=== PATIENT | male | born 1940 | race Caucasian/White ===

== ENCOUNTER 2019-07-04 09:01 | Observation (INO) ==
--- NOTE | 2019-07-04 09:20 | Emergency Department Note ---
Disposition Clinical Impression: Lightheaded, Shortness of breath, Elevated troponin Chest pain Qualifiers: Chest pain type: unspecified Qualified Code(s): R07.9 - Chest pain, unspecified Chronic low back pain Qualifiers: Back pain laterality: unspecified Sciatica presence: without sciatica Qualified Code(s): M54.5 - Low back pain Anemia Qualifiers: Anemia type: unspecified type Qualified Code(s): D64.9 - Anemia, unspecified Disposition: Admitted As Inpatient Condition: Fair Time of Disposition: 12:29 General Adult HPI - General Stated complaint: back pain/SOB/Dizzy Time Seen by Provider: 07/04/19 09:08 Source: patient, family Mode of arrival: private vehicle Limitations: no limitations Nursing Notes Reviewed: Yes Vital Signs Reviewed: Yes - History of Present Illness HPI Narrative: Patient is a 78-year-old male with past medical history including atrial fibrillation, coronary artery disease status post MS with PCI to LAD in December, on , hypertension, hyperlipidemia, chronic back pain, presenting with a chief complaint of chest pain and lightheadedness. The patient states 3 weeks ago he had 3 episodes of syncope and he fell and hit his head. He followed up with his family physician this stated that his blood pressures were very low so he was taken off all of his antihypertensive medications per the patient. He states he has been doing well. He states for the last week, he complains of a frontal headache that is throbbing. He states it is intermittent and improves with acetaminophen. He states he gets headaches like these forward. He denies photophobia, phonophobia, unilateral weakness or numbness or tingling, no abnormal gait. He does also note that he has a history of chronic low back pain. He states he follows up with Dr. Sampson and is scheduled on to have an injection in his low back. He was taken off his pain medication this past week in preparation of his injection. He complains of worsening low back pain, right greater than left. He [facility] which he believes exacerbated his back pain and Tylenol is not helping. He denies any lower extremity weakness, urinary or bowel retention or incontinence, perianal numbness. Patient denies fevers or chills. He states this morning around 4 AM, he woke up and when he got out of bed he felt lightheaded. He thought he was going to pass out so he lay down on the ground. He also complains of substernal chest pain that is a burning sensation. He thought it was exacerbated reflux so he talked his acid reflux medication without any improvement in symptoms. He also complains of shortness of breath and felt nauseous. He had several episodes of dry heaving but no vomiting. Denies abdominal pain. He states he is still feeling intermittently lightheaded. Denies dizziness, hematemesis, hematochezia, melena, dysuria, hematuria. The patient has stress test in May that showed no ischemia or infarct. Stress LVEF was 70%. He also had an echocardiogram that showed LVEF of 60% with mild left ventricular diastolic dysfunction. Patient states he has chest pain at this time at time of arrival. - Related Data Home Medications Medication Instructions Recorded Confirmed Amiloride/Hydrochlorothiazide 0.5 tab PO DAILY 10/02/18 12/10/18 [Amiloride HCl-Hctz 5-50 mg Tab] Aspirin [Lo-Dose Aspirin EC] 81 mg PO DAILY 10/02/18 12/10/18 Buspirone HCl [Buspar] 15 mg PO BID 10/02/18 12/10/18 Omeprazole [PriLOSEC] 20 mg PO DAILY 10/02/18 12/10/18 diazePAM [Valium] 5 mg PO Q6H PRN 10/02/18 12/10/18 Venlafaxine HCl [Venlafaxine HCl 150 mg PO DAILY 10/30/18 12/10/18 ER] Lasix 40 mg PO DAILY 07/04/19 07/04/19 Previous Rx's Medication Instructions Recorded Atenolol [Tenormin] 25 mg PO QPM #30 tablet 12/12/18 Ticagrelor [Brilinta] 90 mg PO BID #60 tablet 12/12/18 Allergies Allergy/AdvReac Type Severity Reaction Status Date / Time nitroglycerin Allergy See Verified 12/10/18 18:18 Comments pregabalin [From Lyrica] AdvReac See Verified 12/10/18 18:18 Comments All systems ED: reviewed and negative except as stated. Review of Systems: As Per HPI Constitutional: Denies: fever, chills Eyes: Denies: vision change Cardiovascular: Reports: chest pain. Denies: palpitations Respiratory: Reports: dyspnea. Denies: cough Gastrointestinal: Reports: nausea. Denies: abdominal pain, vomiting, diarrhea Genitourinary: Denies: dysuria Musculoskeletal: Reports: back pain. Denies: neck pain Neurological: Reports: headache. Denies: weakness, numbness, abnormal gait Past Medical History - Past Medical History Attestation: Yes The following information was validated with the patient. Source: patient Medical history: Reports: atrial fibrillation, coronary artery disease, hyperlipidemia, hypertension, myocardial infarction Surgical history: Reports: knee replacement Psychiatric history: Reports: anxiety - Social History Smoking Status: Never smoker Smokeless Tobacco Status: No Alcohol use: Reports: none Drug use: Reports: none Physical Exam - General Limitations: no limitations General appearance: alert, in no apparent distress - Head Head exam: atraumatic, normocephalic - Eye Eye exam: Present: normal appearance, EOMI - ENT ENT exam: normal exam, mucous membranes moist - Neck Neck exam: Present: normal inspection, trachea midline - Chest Chest inspection: Present: normal inspection, symmetric chest wall rise - Respiratory Respiratory exam: Present: normal lung sounds bilaterally. Absent: respiratory distress, wheezes - Cardiovascular Cardiovascular exam: Present: regular rate, normal rhythm, other (bilateral radial pulses equal) - Abdominal Exam Abdominal exam: Present: soft, Non-Tender. Absent: distention, guarding - Extremities Exam Extremities exam: Present: full ROM, normal capillary refill. Absent: pedal edema, calf tenderness - Back Exam Back exam: Present: other (Tenderness to palpation of the lower lumbar spinal processes and right paraspinal muscles, no step-offs or deformities) - Neurological Exam Neurological exam: Present: alert, oriented X3. Absent: CN II-XII intact, motor sensory deficit - Expanded Neurological Exam Speech: Present: fluid speech Motor strength - LUE: 5/5 Motor strength - RUE: 5/5 Motor strength - LLE: 5/5 Motor strength - RLE: 5/5 Upper motor neuron exam: josé miguel neglect: Absent bilaterally, pronator drift: Absent bilaterally Sensory exam upper extremity: light touch: Normal Sensory exam lower extremity: light touch: Normal - Psychiatric Psychiatric exam: Present: normal affect, normal mood - Skin Skin exam: Present: warm, dry. Absent: diaphoresis, pallor Course Vital Signs Temperature 98.2 F 07/04/19 09:07 Pulse Rate 91 07/04/19 09:07 Respiratory Rate 18 07/04/19 09:07 Blood Pressure 109/60 07/04/19 09:07 O2 Sat by Pulse Oximetry 99 07/04/19 09:07 Temperature 98.2 F 07/04/19 09:07 Pulse Rate 79 07/04/19 12:15 Respiratory Rate 15 07/04/19 12:15 Blood Pressure 111/60 07/04/19 12:15 O2 Sat by Pulse Oximetry 99 07/04/19 12:15 Oxygen Delivery Oxygen Delivery Room Air Medical Decision Making - MDM Narrative Medical decision making narrative: Patient is presenting with multiple complaints. He has had a headache and acute on chronic low back pain in the last week. He has no lower extremity weakness, urinary or bowel incontinence, perianal anesthesia. He has a nonfocal neurologic examination. He is presenting this morning secondary to near syncope and chest pain. He recently had a stent placed in December to the LAD and is on Proventil. He had a recent stress test and echocardiogram in May. Approximately 3 weeks ago, he had 3 episodes of syncope that was due to hypoten rosalia and the patient was taken off his blood pressure medications. He states this morning, he almost passed out and has been having constant substernal chest pain. He thought it was similar to his acid reflux however his acid reflux medications and Tums did not help the pain. He is allergic to nitroglycerin. Full dose aspirin given here. He is borderline hypotensive and will give a liter of IV fluid bolus. We will obtain cardiac workup. Heart score 7. 10:35 Patient has a hemoglobin of 9.9. Denies hematochezia, melena, hematemesis. He did have a endoscopy on June 07 that showed multiple gastric polyps. Normal esophagus. he could have bleeding ulceration or polyps. Stool for occult blood was sent and there was no hemorrhoids, rectal tears, no gross red bloody stool. Stool was brown. BMP is still pending. 11:45 BMP still has not resulted. Called lab. They state the BMP was not on the machine and ran. They are putting it on the machine at this time. 12:15 BMP reviewed. Stool hemoccult negative. Hospitalist paged for admission. 12:[address] Borges who accepts admission - Medical Records Medical records reviewed: Yes I reviewed the patient's medical records. - Lab Data Lab results reviewed: Yes I reviewed the patient's lab results. Result diagrams: 07/04/19 09:23 07/04/19 09:23 Lab Results 07/04/19 07/04/19 07/04/19 Range/Units 09: 09:23 10:42 WBC 5.4 (4.3-11.1) K/mcL RBC 3.34 L (4.19-5.50) M/mcL Hgb 9.9 L (12.9-16.9) g/dL Hct 30.6 L (37.5-50.1) % MCV 91.6 (83.0-100.0) fL MCH 29.6 (28.0-33.3) pg MCHC 32.4 (31.6-35.5) g/dL RDW 13.7 (11.5-14.5) % Plt Count 185 (140-400) K/mcL MPV 9.0 L (9.4-12.4) fL Immature Gran % 0.4 (0-4) % Seg Neutrophils % 74.7 % Lymphocytes % 7.3 % Monocytes % 16.3 % Eosinophils % 0.4 % Basophils % 0.9 % Neutrophils # 4.0 (1.6-8.9) K/mcL Lymphocytes # 0.4 L (0.6-4.6) K/mcL Monocytes # 0.9 (0.0-1.3) K/mcL Eosinophils # 0.0 (0.0-0.6) K/mcL Basophils # 0.1 (0.0-0.2) K/mcL Sodium 138 (136-145) mEq/L Potassium 3.2 L (3.5-5.1) mEq/L Chloride 100 (98-107) mEq/L Carbon Dioxide 28 (23-29) mEq/L BUN 17 (8-23) mg/dL Creatinine 1.79 H (0.70-1.30) mg/dL Est GFR ( Amer) 45 L (> 60) Est GFR (Non-Af Amer) 37 L (> 60) BUN/Creatinine Ratio 9 (6-26) Glucose 154 H (70-105) mg/dL Calculated Osmolality 291 (280-300) Calcium 8.9 (8.6-10.3) mg/dL Troponin I 0.04 H* (< 0.04) ng/mL Stool Occult Bld Scrn Negative (Negative) - Radiology Data Radiology results reviewed: Yes I reviewed the patient's radiology results. Chest X-Ray 07/04/19 09:18 IMPRESSION: No acute cardiopulmonary disease D/ / 07/04/2019 10:11:55 Pieter Hoang MD / [facility] Interpreting Provider: Pieter Hoang MD - EKG Data EKG #1 EKG attestation: Yes I reviewed and interpreted this EKG. EKG results narrative: EKG obtained at 909 shows sinus rhythm with heart rate 89, NV interval 169 and QRS duration 108, QTC 475, normal axis, no ST elevation, no ST depression, compared to old EKG on 04/30/2019 which shows no new changes. Heart Score - Score History: Moderately Suspicious EKG: Non Specific repolarisation Disturbance Age: Greater than 65 Risk Factors: Equal/Greater than 3 risk factor or history of atherosclerotic disease Troponin: 1-3x normal limit HEART Score Total: 7
[2019-07-04] MEDS ORDERED: Aspirin 81 MG TAB.CHEW PO STA (09:31)
[2019-07-04 09:54] LABS: Basophils # 0.1 K/mcL (0.0-0.2); Basophils % 0.9 %; Eosinophils % 0.4 %; Hematocrit 30.6 % (37.5-50.1); Hemoglobin 9.9 g/dL (12.9-16.9); Immature Granulocytes % 0.4 % (0-4); Lymphocytes # 0.4 K/mcL (0.6-4.6); Lymphocytes % 7.3 %; Mean Corpuscular HGB Conc 32.4 g/dL (31.6-35.5); Mean Corpuscular Hemoglobin 29.6 pg (28.0-33.3); Mean Corpuscular Volume 91.6 fL (83.0-100.0); Monocytes # 0.9 K/mcL (0.0-1.3); Monocytes % 16.3 %; Platelet Count 185 K/mcL (140-400); Red Blood Count 3.34 M/mcL (4.19-5.50); Red Cell Distribution Width 13.7 % (11.5-14.5); Segmented Neutrophils % 74.7 %; White Blood Count 5.4 K/mcL (4.3-11.1)
[2019-07-04 10:04] LABS: Troponin I 0.04 ng/mL (< 0.04)
[2019-07-04] MEDS ORDERED: 0.9 % Sodium Chloride 1,000 ML IVC ONE (10:15)
[2019-07-04 12:05] LABS: Calcium 8.9 mg/dL (8.6-10.3); Potassium 3.2 mEq/L (3.5-5.1)
--- NOTE | 2019-07-04 12:14 | Emergency Department Note ---
Disposition Clinical Impression: Lightheaded, Shortness of breath, Elevated troponin Chest pain Qualifiers: Chest pain type: unspecified Qualified Code(s): R07.9 - Chest pain, unspecified Chronic low back pain Qualifiers: Back pain laterality: unspecified Sciatica presence: without sciatica Qualified Code(s): M54.5 - Low back pain Anemia Qualifiers: Anemia type: unspecified type Qualified Code(s): D64.9 - Anemia, unspecified Disposition: Admitted As Inpatient Condition: Fair Referrals: Shaquille Richard Jr, MD [Primary Care Provider] - Time of Disposition: 12:27 General Adult HPI - General Chief complaint: ED Dizziness Stated complaint: back pain/SOB/Dizzy Time Seen by Provider: 07/04/19 09:08 Source: patient, family Mode of arrival: private vehicle Limitations: no limitations - History of Present Illness Pain Scale: 10 - Related Data Home Medications Medication Instructions Recorded Confirmed Amiloride/Hydrochlorothiazide 0.5 tab PO DAILY 10/02/18 07/04/19 [Amiloride HCl-Hctz 5-50 mg Tab] Aspirin [Lo-Dose Aspirin EC] 81 mg PO DAILY 10/02/18 07/04/19 Buspirone HCl [Buspar] 15 mg PO BID 10/02/18 07/04/19 Omeprazole [PriLOSEC] 20 mg PO DAILY 10/02/18 07/04/19 diazePAM [Valium] 5 mg PO Q6H PRN 10/02/18 07/04/19 Venlafaxine HCl [Venlafaxine HCl 75 mg PO BID 10/30/18 07/04/19 ER] Lasix 40 mg PO DAILY 07/04/19 07/04/19 Previous Rx's Medication Instructions Recorded Atenolol [Tenormin] 25 mg PO QPM #30 tablet 12/12/18 Ticagrelor [Brilinta] 90 mg PO BID #60 tablet 12/12/18 Allergies Allergy/AdvReac Type Severity Reaction Status Date / Time nitroglycerin Allergy See Verified 12/10/18 18:18 Comments pregabalin [From Lyrica] AdvReac See Verified 12/10/18 18:18 Comments Constitutional: Denies: fever, chills Eyes: Denies: vision change Cardiovascular: Reports: chest pain. Denies: palpitations Respiratory: Reports: dyspnea. Denies: cough Gastrointestinal: Reports: nausea. Denies: abdominal pain, vomiting, diarrhea Genitourinary: Denies: dysuria Musculoskeletal: Reports: back pain. Denies: neck pain Neurological: Reports: headache. Denies: weakness, numbness, abnormal gait Past Medical History - Past Medical History Medical history: Reports: atrial fibrillation, coronary artery disease, hyperlipidemia, hypertension, myocardial infarction Surgical history: Reports: knee replacement Psychiatric history: Reports: anxiety - Social History Smoking Status: Never smoker Smokeless Tobacco Status: No Alcohol use: Reports: none Drug use: Reports: none Physical Exam - General Limitations: no limitations General appearance: alert, in no apparent distress Course Vital Signs Temperature 98.2 F 07/04/19 09:07 Pulse Rate 91 07/04/19 09:07 Respiratory Rate 18 07/04/19 09:07 Blood Pressure 109/60 07/04/19 09:07 O2 Sat by Pulse Oximetry 99 07/04/19 09:07 Temperature 98.2 F 07/04/19 09:07 Pulse Rate 79 07/04/19 12:15 Respiratory Rate 15 07/04/19 12:15 Blood Pressure 111/60 07/04/19 12:15 O2 Sat by Pulse Oximetry 99 07/04/19 12:15 Oxygen Delivery Oxygen Delivery Room Air Medical Decision Making - Lab Data Result diagrams: 07/04/19 09:23 07/04/19 09:23 Lab Results 07/04/19 07/04/19 07/04/19 Range/Units 09:23 09:23 10:42 WBC 5.4 (4.3-11.1) K/mcL RBC 3.34 L (4.19-5.50) M/mcL Hgb 9.9 L (12.9-16.9) g/dL Hct 30.6 L (37.5-50.1) % MCV 91.6 (83.0-100.0) fL MCH 29.6 (28.0-33.3) pg MCHC 32.4 (31.6-35.5) g/dL RDW 13.7 (11.5-14.5) % Plt Count 185 (140-400) K/mcL MPV 9.0 L (9.4-12.4) fL Immature Gran % 0.4 (0-4) % Seg Neutrophils % 74.7 % Lymphocytes % 7.3 % Monocytes % 16.3 % Eosinophils % 0.4 % Basophils % 0.9 % Neutrophils # 4.0 (1.6-8.9) K/mcL Lymphocytes # 0.4 L (0.6-4.6) K/mcL Monocytes # 0.9 (0.0-1.3) K/mcL Eosinophils # 0.0 (0.0-0.6) K/mcL Basophils # 0.1 (0.0-0.2) K/mcL Sodium 138 (136-145) mEq/L Potassium 3.2 L (3.5-5.1) mEq/L Chloride 100 (98-107) mEq/L Carbon Dioxide 28 (23-29) mEq/L BUN 17 (8-23) mg/dL Creatinine 1.79 H (0.70-1.30) mg/dL Est GFR ( Amer) 45 L (> 60) Est GFR (Non-Af Amer) 37 L (> 60) BUN/Creatinine Ratio 9 (6-26) Glucose 154 H (70-105) mg/dL Calculated Osmolality 291 (280-300) Calcium 8.9 (8.6-10.3) mg/dL Troponin I 0.04 H* (< 0.04) ng/mL Stool Occult Bld Scrn Negative (Negative) Attestation Statement - Attestation Attestation: I examined this patient and my medical decision-making was reviewed with the Resident Physician. I agree with the documented findings, disposition and treatment plan as described except to the extent set forth below. Patient presents with chest pain and difficulty breathing as well as with lightheadedness. Has recently taken off all his blood pressure medications because his pressures have been running low. His pressure continues to run low here. His hemoglobin is taken a bit of the DIP. Stool is Hemoccult negative, he has not had any complaints of symptoms that would suggest GI bleeding. I was present for the resident's EKG interpretation. He is pain-free at this time. Has chronic, stable renal dysfunction. Patient stable for admission to the hospital.
[2019-07-04] MEDS ORDERED: Naloxone 0.4 MG/ML INJ IVP PRN (14:19)
[2019-07-04] MEDS ORDERED: Morphine Sulfate 2 MG/ML SYRINGE IVP PRN (14:31)
[2019-07-04] MEDS: 0.9 % Sodium Chloride 1,000 ML IVC SCH ×2 (14:54→23:08)
[2019-07-04] MEDS: Potassium Chloride Elixir 20 MEQ/15 ML UDC PO SCH ×2 (14:54→17:51)
[2019-07-04] MEDS: Aspirin Enteric Coated 81 MG Tablet PO SCH (14:55)
[2019-07-04] MEDS ORDERED: Acetaminophen 325 MG TABLET PO PRN (15:19)
--- NOTE | 2019-07-04 15:29 | Internal Med History&Physical ---
Date of Encounter: 07/04/19 Time of Encounter: 15:00 Internal Medicine - H&P: HPI Chief complaint: Chest pain, shortness of breath and light headedness for a month Plans for Post Hospital Care: Home History of present illness: Mr. Samayoa is a 78 year old male with pmh of CAD s/p PCI in December 2018, chronic back pain, hypertension presenting with complaints of chest pain, lightheadedness and headaches for a month duration. Patient says the pain he is experiencing is similar to what he felt before his cardiac cath in december. When asked to describe his pain however , he says it's a soreness accompanied with a squeezing sensation and shortness of breath with activity such as walking. He however points to his chest wall and there's an area of reproducible tendereness at the inferior part of the right xiphoid process. In the past 1 day pain chest pain has worsened. He denies any fevers chills or coughs. He complains of intermittently passing out in the last 3 weeks as well and says this due to low blood pressure. He notes that his atenolol was stopped by Dr Sampson for a lumbar procedure he has scheduled for later this week. In the ER, troponins were 0.04, chest xray showed no acute cardiopulmonary disease, and he is being admitted for ACS workup Past Med Surg Social Fam HX - Past Medical History Medical history: atrial fibrillation, coronary artery disease, hyperlipidemia, hypertension, myocardial infarction Additional medical history: Chronic Pain, plantar fasciitis, pulmonary stenosis,. Rheumatic Fever Psychiatric history: anxiety, depression - Past Surgical History Surgical History: knee replacement Additional surgical history: Right and Left Knee Scope, back surgery, kidney surgery. LHC w/ Stents, right knee replacement - Social History Smoking Status: Never smoker Smokeless Tobacco Status: No Alcohol use: none Drug use: none - Family History Mother Living Status: Cause of : NM Hx Family Cardiac Disorders: Yes Father Living Status: Cause of : cancer Internal Medicine - H&P: Meds Amiloride/Hydrochlorothiazide [Amiloride HCl-Hctz 5-50 mg Tab] 0.5 tab PO DAILY 10/02/18 [History] Aspirin [Lo-Dose Aspirin EC] 81 mg PO DAILY 10/02/18 [History] Buspirone HCl [Buspar] 15 mg PO BID 10/02/18 [History] Omeprazole [PriLOSEC] 20 mg PO DAILY 10/02/18 [History] diazePAM [Valium] 5 mg PO Q6H PRN 10/02/18 [History] Venlafaxine HCl [Venlafaxine HCl ER] 75 mg PO BID 10/30/18 [History] Atenolol [Tenormin] 25 mg PO QPM #30 tablet 12/12/18 [Rx] Ticagrelor [Brilinta] 90 mg PO BID #60 tablet 12/12/18 [Rx] Lasix 40 mg PO DAILY 07/04/19 [History] Allergy/AdvReac Type Severity Reaction Status Date / Time nitroglycerin Allergy See Verified 12/10/18 18:18 Comments pregabalin [From Lyrica] AdvReac See Verified 12/10/18 18:18 Comments All Systems PM: A 10-system review of systems was performed and is negative for pertinent findings except as documented above in the HPI. - Constitutional Constitutional: no chills, no fever(s), no night sweats - EENT Eyes: no change in vision, no discharge, no pain, no photophobia Ears: no ear discharge, no ear pain, no tinnitus Nose, mouth and throat: no dysphagia, no nasal discharge, no neck pain, no sore throat - Cardiovascular Cardiovascular ROS IM: chest pain, no diaphoresis, no dyspnea, no lightheade dness, no palpitations, no syncope - Respiratory Respiratory: no cough, no dyspnea, no wheezing, no excessive phlegm production - Gastrointestinal Gastrointestinal: no abdominal pain, no diarrhea, no hematemesis, no hemato chezia, no melena, no nausea, no vomiting - Musculoskeletal Musculoskeletal ROS IM: no numbness, no tingling - Integumentary Integumentary IM: no rash, no unusual bruising - Neurological Neurological ROS: dizziness, headache(s), no confusion, no convulsions, no focal weakness, no numbness, no tingling, no tremor(s) - Hematologic/Lymphatic Hematologic/Lymphatic: no easy bruising - Constitutional Vitals: Temp Pulse Resp BP Pulse Ox 97.9 F 71 16 114/70 100 07/04/19 13:52 07/04/19 13:52 07/04/19 13:52 07/04/19 13:52 07/04/19 13:52 Exam: NAD - Head Head exam: Present: atraumatic, normocephalic - Eye Eye exam: Present: PERRL, conjuntiva pink, sclera anicteric Pupils: Present: PERRL - Neck Neck exam general surgery: Present: supple, trachea midline. Absent: lymphadenopathy - Respiratory Respiratory exam: Present: CTAB. Absent: accessory muscle use, rales, rhonchi, wheezes - Cardiovascular Cardiovascular exam: Present: RRR, +S1, +S2. Absent: diastolic murmur, gallop, rubs, systolic murmur - GI/Abdominal GI/Abdominal exam: Present: normal bowel sounds, soft, no peritoneal signs. A bsent: distended, tenderness - Extremities Exam Extremities exam: Present: warm, radial pulses palpable and symmetrical. Absent: calf tenderness, cyanotic, pedal edema - Neurological Exam Neurological exam: Present: CN II-XII intact, oriented X3, no focal deficits. Absent: pronater drift, facial droop, speech deficit - Skin Skin exam: Present: dry, intact Internal Med - H&P Results - Labs CBC & Chem 7: 07/04/19 09:23 07/04/19 09:23 Labs: Short CBC 07/04/19 Range/Units 09:23 WBC 5.4 (4.3-11.1) K/mcL Hgb 9.9 L (12.9-16.9) g/dL Hct 30.6 L (37.5-50.1) % Plt Count 185 (140-400) K/mcL Neutrophils # 4.0 (1.6-8.9) K/mcL BMP 07/04/19 09:23 Sodium 138 Potassium 3.2 L Chloride 100 Carbon Dioxide 28 BUN 17 Creatinine 1.79 H Glucose 154 H Calcium 8.9 Cardiac Enzymes 07/04/19 Range/Units 09:23 Troponin I 0.04 H* (< 0.04) ng/mL - Impressions ITS Impressions Chest X-Ray 07/04/19 09:18 IMPRESSION: No acute cardiopulmonary disease D/ / 07/04/2019 10:11:55 Pieter Hoang MD / [facility] Interpreting Provider: Pieter Hoang MD - Assessment and Plan (1) Chest pain Current Visit: Yes Status: Acute Assessment and plan: Pt comes in with chest pain of 1 moth duration. Had PCI in december and negative stress test in May Will continue aspirin and brillinta. No benefit to repeating stress test, cardiology consult for possible invasive workup. Obtain 2D echo Will cover for msk chest pain as patient has reproducible tenderness.. Tylenol and flexeril PRN Qualifiers: Chest pain type: unspecified Qualified Code(s): R07.9 - Chest pain, unspecified (2) Coronary artery disease Current Visit: Yes Status: Acute Assessment and plan: s/p PCI in December. Continue aspirin and brillinta Qualifiers: Coronary Disease-Associated Artery/Lesion type: unspecified vessel or lesion type [place] vs. transplanted heart: [place] heart Associated angina: without angina Qualified Code(s): I25.10 - Atherosclerotic heart disease of [place] coronary artery without angina pectoris (3) Chronic low back pain Current Visit: Yes Status: Acute Assessment and plan: Pain control as needed. Outpatient f/u with pain clinic Qualifiers: Back pain laterality: unspecified Sciatica presence: without sciatica Qualified Code(s): M54.5 - Low back pain; G89.29 - Other chronic pain (4) Hypotension Current Visit: Yes Status: Acute Assessment and plan: Unclear etiology. Reportedly stopped taking BP meds. Complains of intermittent hypotension and dizziness Obtain cortisol and TSH levels. IV fluid hydration. Obtain orthostatic vitals Qualifiers: Qualified Code(s): I95.9 - Hypotension, unspecified (5) HTN (hypertension) Current Visit: Yes Status: Acute Assessment and plan: Hold BP meds. Continue beta blockers Qualifiers: Hypertension type: essential hypertension Qualified Code(s): I10 - Essen tial (primary) hypertension (6) DVT prophylaxis Current Visit: Yes Status: Acute Assessment and plan: Heparin sc - Time Spent With Patient Total time spent is greater than 50% in coordination of care (as documented) at patient's floor/unit and/or counseling patient:
[2019-07-04] MEDS: *HR* Heparin 5,000 UNIT/ML VIAL SQ SCH (17:48)
[2019-07-04] MEDS: Venlafaxine XR (24 HR) 75 MG CAP.ER.24H PO SCH (20:08)
[2019-07-04] MEDS: *HR* Ticagrelor 90 MG TABLET PO SCH (20:08)
[2019-07-04] MEDS ORDERED: Acetaminophen IV 1,000 MG/100 ML INFUS..BTL IVPB ONE (22:49)
[2019-07-05] MEDS: diazePAM 5 MG TABLET PO PRN ×2 (01:11→08:21)
[2019-07-05 02:24] LABS: Basophils % 0.5 %; Eosinophils % 0.2 %; Hematocrit 29.9 % (37.5-50.1); Hemoglobin 9.4 g/dL (12.9-16.9); Immature Granulocytes % 0.5 % (0-4); Lymphocytes # 0.4 K/mcL (0.6-4.6); Lymphocytes % 9.2 %; Mean Corpuscular HGB Conc 31.4 g/dL (31.6-35.5); Mean Corpuscular Hemoglobin 28.7 pg (28.0-33.3); Mean Corpuscular Volume 91.2 fL (83.0-100.0); Mean Platelet Volume 9.3 fL (9.4-12.4); Monocytes # 0.6 K/mcL (0.0-1.3); Monocytes % 13.5 %; Neutrophils # 3.2 K/mcL (1.6-8.9); Platelet Count 165 K/mcL (140-400); Red Blood Count 3.28 M/mcL (4.19-5.50); Red Cell Distribution Width 14.1 % (11.5-14.5); Segmented Neutrophils % 76.1 %; White Blood Count 4.2 K/mcL (4.3-11.1)
[2019-07-05 02:42] LABS: Calcium 8.2 mg/dL (8.6-10.3); Magnesium 1.6 mg/dL (1.6-2.6); Potassium 3.9 mEq/L (3.5-5.1)
[2019-07-05] MEDS: *HR* Heparin 5,000 UNIT/ML VIAL SQ SCH (05:44)
[2019-07-05] MEDS: Venlafaxine XR (24 HR) 75 MG CAP.ER.24H PO SCH (08:20)
[2019-07-05] MEDS: Aspirin Enteric Coated 81 MG Tablet PO SCH (08:21)
[2019-07-05] MEDS: *HR* Ticagrelor 90 MG TABLET PO SCH (08:21)
[2019-07-05] MEDS ORDERED: AMILoride/HCTZ 5-50mg 1 EACH TABLET PO SCH (09:00)
--- NOTE | 2019-07-05 09:15 | Cardiology Consult Note ---
Date of Encounter: 07/05/19 Time of Encounter: 09:11 Assessment and Plan (1) Chest pain Current Visit: Yes Status: Acute Complaints of back and chest pain since November. Pt reports constant chest pain, no exacerbating factors. Reports mild symptom improvement with tums. Reports constant back pain as well. Initial troponin 0.04, then 0.03, 0.03. No acute ECG changes. Chest tenderness on palpation. Per pt, chest pain never improved post PCI in December. Nuclear stress test 05/28/19 perfusion imaging was negative for ischemia or infarct. Nuclear stress test 05/28/19: Perfusion imaging negative for ischemia or infarct. Gated EF >70%> [facility] 12/11/18: Double vessel coronary artery disease. Successful PCI of LAD with YUMIKO. The left ventricle is normal and has normal contractility EF 65%. Chest pain is atypical and has been ongoing since prior to LHC/PCI 12/2018. Would recommend work-up for noncardiac causes. Limited TTE ordered by primary team. Anticipate sign off if no significant change from previous TTE. Will discuss and review with Dr. Barney. Qualifiers: Chest pain type: unspecified Qualified Code(s): R07.9 - Chest pain, unspecified (2) Coronary artery disease Current Visit: Yes Status: Acute Hx PCI. [facility] 12/11/18: Double vessel coronary artery disease. Successful PCI of LAD with YUMIKO. The left ventricle is normal and has normal contractility EF 65%. Continue ASA, Brilinta, BB. Will start Statin. Qualifiers: Coronary Disease-Associated Artery/Lesion type: unspecified vessel or lesion type [place] vs. transplanted heart: [place] heart Associated angina: without angina Qualified Code(s): I25.10 - Atherosclerotic heart disease of [place] coronary artery without angina pectoris (3) PAF (paroxysmal atrial fibrillation) Current Visit: No Status: Acute Reported hx of PAF with DCCV in the past, per pt. Was not on halfway AC prior to admission. ECGs and tele show SR. ECG 12/2018 SVT, but no A-Fib noted in our system. [id number] (Age, HTN, CAD). High CVA risk. No A-Fib has been noted during stay. 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 Tripathi, as HGB currently 9.4 with previous baseline ~11 range. Continue ASA and Brilinta. Discussion w patient/family: The assessment and plan as outlined above was discussed with the patient and/or family members who expressed understanding and agreement. All questions were answered. Thank you for involving us in the care of your patient. Please call with any questions. I will discuss all the above with Dr. Barney and make changes as necessary. History of Present Illness Consult date: 07/05/19 Consult reason: chest pain Chief complaint: back pain, chest pain History of present illness: Mr. Samayoa is a 78 year old male with PMH of CAD and NSTEMI s/p PCI in December 2018, reported PAF, chronic back pain, hypertension presenting with complaints of back and chest pain since November. Pt reports constant chest pain, no exacerbating factors. Reports mild symptom improvement with tums. Reports constant back pain as well. Initial troponin 0.04, then 0.03, 0.03. Cardiology consulted for further recs. Per pt, chest pain never improved post PCI in December. Nuclear stress test 05/28/19 perfusion imaging was negative for ischemia or infarct. Prior CV testing: Nuclear stress test 05/28/19: Perfusion imaging negative for ischemia or infarct. Gated EF >70%> TTE 05/28/19: LVEF 60%. Mild left ventricular diastolic dysfunction. Normal right ventricular structure and function. Mild tricuspid regurgitation. No pulmonary hypertension. [facility] 12/11/18: Double vessel coronary artery disease. Successful PCI of LAD with YUMIKO. The left ventricle is normal and has normal contractility EF 65% Past Med Surg Social Fam HX - Past Medical History Medical history: atrial fibrillation, coronary artery disease, hyperlipidemia, hypertension, myocardial infarction Additional medical history: Chronic Pain, plantar fasciitis, pulmonary stenosis,. Rheumatic Fever Psychiatric history: anxiety, depression - Past Surgical History Surgical History: knee replacement Additional surgical history: Right and Left Knee Scope, back surgery, kidney surgery. [facility] w/ Stents, right knee replacement - Social History Smoking Status: Never smoker Smokeless Tobacco Status: No Alcohol use: none Drug use: none - Family History Mother Living Status: Cause of : [place] Hx Family Cardiac Disorders: Yes Father Living Status: Cause of : cancer Medications and Allergies Amiloride/Hydrochlorothiazide [Amiloride HCl-Hctz 5-50 mg Tab] 0.5 tab PO DAILY 10/02/18 [History] Aspirin [Lo-Dose Aspirin EC] 81 mg PO DAILY 10/02/18 [History] Buspirone HCl [Buspar] 15 mg PO BID 10/02/18 [History] Omeprazole [PriLOSEC] 20 mg PO DAILY 10/02/18 [History] diazePAM [Valium] 5 mg PO Q6H PRN 10/02/18 [History] Venlafaxine HCl [Venlafaxine HCl ER] 75 mg PO BID 10/30/18 [History] Atenolol [Tenormin] 25 mg PO QPM #30 tablet 12/12/18 [Rx] Ticagrelor [Brilinta] 90 mg PO BID #60 tablet 12/12/18 [Rx] Lasix 40 mg PO DAILY 07/04/19 [History] traZODone [TraZODone] 25 mg PO HS 07/04/19 [History] Allergy/AdvReac Type Severity Reaction Status Date / Time nitroglycerin Allergy See Verified 12/10/18 18:18 Comments pregabalin [From Lyrica] AdvReac See Verified 12/10/18 18:18 Comments All Systems Review: The remainder of the systems were reviewed and are negative - Cardiovascular Cardiovascular: as per HPI, chest pain at rest, chest pain with exertion Physical Examination Vital Signs, Last 4 Hours Temp Pulse Resp BP Pulse Ox 07/05/19 08:01 98.3 F 65 16 108/56 94 Vital Signs Temp Pulse Resp BP BP BP BP 07/05/19 08:01 98.3 F 65 16 108/56 07/05/19 03:06 98.4 F 73 16 103/62 07/04/19 22:21 98.8 F 75 16 112/64 07/04/19 19:21 98.7 F 80 16 101/56 07/04/19 15:35 98.0 F 86 16 112/68 07/04/19 15:33 120/73 118/65 112/68 07/04/19 13:52 97.9 F 71 16 114/70 07/04/19 12:15 79 15 111/60 07/04/19 10:59 77 18 105/61 Pulse Ox 07/05/19 08:01 94 07/05/19 03:06 94 07/04/19 22:21 98 07/04/19 19:21 95 07/04/19 15:35 98 07/04/19 15:33 07/04/19 13:52 100 07/04/19 12:15 99 07/04/19 10:59 100 Intake and Output 07/04/19 07/05/19 07/05/19 23:59 07:59 15:59 Intake Total 1120 / 2120 Output Total 200 / 200 100 / 100 Balance 920 / 1920 -100 / -100 Intake: IV Fluids 1000 / 2000 0.9 % Sodium Chloride 1,000 ML 1000 / 1000 @ 100 mls/hr IVC .Q10H [facility] Rx#: [id number] Oral 120 / 120 Output: Urine 200 / 200 100 / 100 Other: Meal Dinner Percent of Meal Consumed 20% Weight 92.3 kg Patient Weight 07/05/19 23:59 Weight 92.3 kg General: Conversant, No Apparent Distress HEENT: Atraumatic, Normocephaly, Mucus Membranes Moist Neck: No JVD, Normal carotid pulses Cardiac: Reg Rate and Rhythm, Normal S1 and S2, No Murmur Lungs: Normal Breath Sounds, No Wheeze, Rales, Rhonchi Neuro: Alert and responsive, No focal deficits noted Abdomen: Soft, Non-Tender Skin: No rashes noted on visualized skin Musculoskeletal: No Chest Wall Tenderness Extremities: No Clubbing, No Cyanosis, No Edema, Normal Pulses Results 07/05/19 00:35 07/05/19 00:35 Lab Results 07/04/19 07/04/19 07/04/19 09:23 09:23 16:10 WBC 5.4 Hgb 9.9 L Hct 30.6 L Plt Count 185 Sodium 138 Potassium 3.2 L Chloride 100 Carbon Dioxide 28 BUN 17 Creatinine 1.79 H Glucose 154 H Calcium 8.9 Magnesium Troponin I 0.04 H* 0.03 TSH 07/04/19 07/05/19 07/05/19 16:10 00:35 00:35 WBC 4.2 L Hgb 9.4 L Hct 29.9 L Plt Count 165 Sodium 141 Potassium 3.9 Chloride 106 Carbon Dioxide 26 BUN 18 Creatinine 1.75 H Glucose 97 Calcium 8.2 L Magnesium 1.6 Troponin I TSH 1.967 07/05/19 00:35 WBC Hgb Hct Plt Count Sodium Potassium Chloride Carbon Dioxide BUN Creatinine Glucose Calcium Magnesium Troponin I 0.03 TSH Short CBC 07/05/19 07/04/19 Range/Units 00:35 09:23 WBC 4.2 L 5.4 (4.3-11.1) K/mcL Hgb 9.4 L 9.9 L (12.9-16.9) g/dL Hct 29.9 L 30.6 L (37.5-50.1) % Plt Count 165 185 (140-400) K/mcL Neutrophils # 3.2 4.0 (1.6-8.9) K/mcL BMP 07/05/19 07/04/19 Range/Units 00:35 09:23 Sodium 141 138 (136-145) mEq/L Potassium 3.9 3.2 L (3.5-5.1) mEq/L Chloride 106 100 (98-107) mEq/L Carbon Dioxide 26 28 (23-29) mEq/L BUN 18 17 (8-23) mg/dL Creatinine 1.75 H 1.79 H (0.70-1.30) mg/dL Glucose 97 154 H (70-105) mg/dL Calcium 8.2 L 8.9 (8.6-10.3) mg/dL Cardiac Enzymes 07/05/19 07/04/19 07/04/19 Range/Units 00:35 16:10 09:23 Troponin I 0.03 0.03 0.04 H* (< 0.04) ng/mL Impressions Chest X-Ray 07/04/19 09:18 IMPRESSION: No acute cardiopulmonary disease D/ / 07/04/2019 10:11:55 Pieter Hoang MD / [facility] Interpreting Provider: Pieter Hoang MD Active Medications Acetaminophen (Tylenol) 650 mg PO Q6HR PRN PRN Reason: Analgesia Stop: 01/03/20 15:20 Last Admin: 07/05/19 01:11 Dose: 650 mg Documented by: Aspirin (Aspirin Ec) 81 mg PO DAILY [facility] Stop: 01/03/20 14:31 Last Admin: 07/05/19 08:21 Dose: 81 mg Documented by: Atenolol (Tenormin) 25 mg PO QPM [facility] Stop: 03/02/20 18:01 Last Admin: 07/04/19 17:49 Dose: 25 mg Documented by: Buspirone HCl (Buspar) 15 mg PO BID [facility] Stop: 01/03/20 21:01 Last Admin: 07/05/19 08:19 Dose: 15 mg Documented by: Cyclobenzaprine HCl (Flexeril) 5 mg PO Q8H PRN PRN Reason: Chest Pain Stop: 01/03/20 15:31 Last Admin: 07/05/19 08:20 Dose: 5 mg Documented by: Diazepam (Valium) 5 mg PO Q6H PRN PRN Reason: Anxiety Stop: 01/03/20 14:22 Last Admin: 07/05/19 08:21 Dose: 5 mg Documented by: Heparin Sodium (Porcine) (Heparin) 5,000 unit SQ Q12HCO [facility]; Protocol Stop: 01/03/20 18:01 Last Admin: 07/05/19 05:44 Dose: 5,000 unit Documented by: Lidocaine HCl (Lidoderm 5% Patch) 2 each TP Q24H [facility] Stop: 01/03/20 23:01 Last Admin: 07/04/19 23:07 Dose: 1 each Documented by: Morphine Sulfate (Morphine) 0.5 mg IVP Q6HR PRN; Protocol PRN Reason: Breakthrough Pain Stop: 01/03/20 14:32 Last Admin: 07/04/19 20:08 Dose: 0.5 mg Documented by: Naloxone HCl (Narcan) 0.4 mg IVP Q2MPRN PRN PRN Reason: SEE COMMENTS Stop: 01/03/20 14:20 Omeprazole (Prilosec) 20 mg PO DAILY@0730 [facility]; Protocol Stop: 01/04/20 07:31 Last Admin: 07/05/19 08:20 Dose: 20 mg Documented by: Ticagrelor (Brilinta) 90 mg PO BID [facility] Stop: 01/03/20 21:01 Last Admin: 07/05/19 08:21 Dose: 90 mg Documented by: Venlafaxine HCl (Effexor Xr) 75 mg PO BID [facility]; Protocol Stop: 01/03/20 21:01 Last Admin: 07/05/19 08:20 Dose: 75 mg Documented by: - Imaging and Cardiology Stress Test: report reviewed Echo: report reviewed Cardiac cath: report reviewed - EKG Interpretation EKG results cardiology: personally reviewed (SR), other (12 hr tele AVG HR 67, SR) Consult Discharge Plan - Plan Referrals: Shaquille Richard Jr, MD [Primary Care Provider] -
[2019-07-05 12:21] VITALS: BP 133/71
--- NOTE | 2019-07-05 12:30 | Discharge Summary ---
Date of Encounter: 07/05/19 Time of Encounter: 13:09 - Discharge Diagnosis (1) Chest pain Priority: Primary Status: Acute Assessment and Plan: 78 year old male with pmh of CAD s/p PCI in December 2018, chronic back pain, hypertension presenting with complaints of chest pain, lightheadedness and headaches for a month duration. Patient says the pain he is experiencing is similar to what he felt before his cardiac cath in december. When asked to describe his pain however , he says it's a soreness accompanied with a squeezing sensation and shortness of breath with activity such as walking. He however points to his chest wall and there's an area of reproducible tendereness at the inferior part of the right xiphoid process. In the past 1 day pain chest pain has worsened. He denies any fevers chills or coughs. He complains of intermittently passing out in the last 3 weeks as well and says this due to low blood pressure. He notes that his atenolol was stopped by Dr Sampson for a lumbar procedure he has scheduled for later this week. He was assessed with chest pain musculoskletal vs ACS. Pain was reproducible on chest wall palpation and improved with flexeril. He was seen by cardiology who recommended an echo and if no acute changes on echo, he could be discharged with no further workup. Due to holiday, echo will not be performed till much later in the day (if at all it's done today) and patient elected to go home . He has been given a referral to complete his echo within the next 2 days. He was discharged on muscle relaxants. Discharged in a stable condition Qualifiers: Chest pain type: unspecified Qualified Code(s): R07.9 - Chest pain, unspecified (2) Coronary artery disease Priority: Primary Status: Acute Qualifiers: Coronary Disease-Associated Artery/Lesion type: unspecified vessel or lesion type [place] vs. transplanted heart: [place] heart Associated angina: without angina Qualified Code(s): I25.10 - Atherosclerotic heart disease of [place] coronary artery without angina pectoris (3) Chronic low back pain Priority: Primary Status: Acute Qualifiers: Back pain laterality: unspecified Sciatica presence: without sciatica Qualified Code(s): M54.5 - Low back pain; G89.29 - Other chronic pain (4) Hypotension Priority: Primary Status: Acute Qualifiers: Qualified Code(s): I95.9 - Hypotension, unspecified (5) HTN (hypertension) Priority: Primary Status: Acute Qualifiers: Hypertension type: essential hypertension Qualified Code(s): I10 - Essential (primary) hypertension (6) DVT prophylaxis Priority: Primary Status: Acute Hospital course: Mr. Samayoa is a 78 year old male - Time Spent with Patient Total time spent providing and/or coordinating discharge services: - Discharge Medications Prescriptions: New Cyclobenzaprine [Flexeril] 5 mg PO Q8H PRN #30 tablet PRN Reason: Chest Pain Continued Aspirin [Lo-Dose Aspirin EC] 81 mg PO DAILY Amiloride/Hydrochlorothiazide [Amiloride HCl-Hctz 5-50 mg Tab] 0.5 tab PO DAILY Omeprazole [PriLOSEC] 20 mg PO DAILY Buspirone HCl [Buspar] 15 mg PO BID diazePAM [Valium] 5 mg PO Q6H PRN PRN Reason: Anxiety Venlafaxine HCl [Venlafaxine HCl ER] 75 mg PO BID Atenolol [Tenormin] 25 mg PO QPM #30 tablet Ticagrelor [Brilinta] 90 mg PO BID #60 tablet Lasix 40 mg PO DAILY traZODone [TraZODone] 25 mg PO HS Home Medications: Amiloride/Hydrochlorothiazide [Amiloride HCl-Hctz 5-50 mg Tab] 0.5 tab PO DAILY 10/02/18 [History] Aspirin [Lo-Dose Aspirin EC] 81 mg PO DAILY 10/02/18 [History] Buspirone HCl [Buspar] 15 mg PO BID 10/02/18 [History] Omeprazole [PriLOSEC] 20 mg PO DAILY 10/02/18 [History] diazePAM [Valium] 5 mg PO Q6H PRN 10/02/18 [History] Venlafaxine HCl [Venlafaxine HCl ER] 75 mg PO BID 10/30/18 [History] Atenolol [Tenormin] 25 mg PO QPM #30 tablet 12/12/18 [Rx] Ticagrelor [Brilinta] 90 mg PO BID #60 tablet 12/12/18 [Rx] Lasix 40 mg PO DAILY 07/04/19 [History] traZODone [TraZODone] 25 mg PO HS 07/04/19 [History] Cyclobenzaprine [Flexeril] 5 mg PO Q8H PRN #30 tablet 07/05/19 [Rx] Allergies/Adverse Reactions: Allergy/AdvReac Type Severity Reaction Status Date / Time nitroglycerin Allergy See Verified 12/10/18 18:18 Comments pregabalin [From Lyrica] AdvReac See Verified 12/10/18 18:18 Comments Date of admission: 07/04/19 12:34 Primary care physician: Shaquille Richard Jr, MD Consults: 07/04/19 14:20 Consult to Cardiology [CONS] Routine Comment: Consulting Provider: [facility] [place] Reason for Consult: recurrent chest pain, recent negative stress test and recent PCI in December Call Completed: No - Constitutional Vitals: Temp Pulse Resp BP Pulse Ox 98.1 F 73 16 133/71 97 07/05/19 12:20 07/05/19 12:20 07/05/19 12:20 07/05/19 12:20 07/05/19 12:20 Exam: General appearance: Present: A&O X 3, no acute distress Head exam: Present: normocephalic Respiratory exam: Present: CTAB. Absent: accessory muscle use, rales, rhonchi, wheezes Cardiovascular exam: Present: RRR, +S1, +S2. Absent: diastolic murmur, gallop, rubs, systolic murmur GI/Abdominal exam: Soft, NT, ND, +BS Extremities exam: Absent: pedal edema Neurological exam: Present: alert, oriented X3, no focal deficits. Absent: altered - Patient Status Disposition: Home, Self-Care Condition: Good - Ambulatory Orders Ambulatory Orders: EV limited echocardiogram Time Frame: 2 Days, Facility: [facility], Location: [facility] - Discharge Instructions Instructions: Cyclobenzaprine (By mouth), Transthoracic Echocardiogram (DC) Follow Up With: Shaquille Richard Jr, MD [Primary Care Provider] - (Please call Friday to schedule hospital follow up appointment for 7-10 days from date of discharge. ) Forms: ED Satisfaction Letter
--- NOTE | 2019-07-08 11:15 | Electrocardiograph Report ---
[employer] Test Date: 2019-07-04 Pat Name: Jay Rhodes Department: EXAM5 Room: 3B43 Gender: M [employer]ical [employer]: : 1940 Requested By: Sona Bai Order Number: [id number] Reading MD: Shaquille Richard Measurements Intervals [place] Rate: 89 P: 57 SD: 169 QRS: 109 QRSD: 108 T: 33 QT: 390 QTc: 475 Interpretive Statements Sinus rhythm Probable right ventricular hypertrophy Electronically Signed On 07-08-2019 11:14:05 EDT by Shaquille Richard
== END 2019-07-05 13:11 | disposition home or self-care (01) ==
LOC: 3BNU 09:01 → EMEROOARM 09:01 → 3BNU 13:30
PROVIDERS: ADMIT Internal Medicine; ATTEND Internal Medicine

== ENCOUNTER 2021-05-02 09:22 | Observation (INO) ==
[2021-05-02] MEDS ORDERED: Aspirin 81 MG TAB.CHEW PO ONE (09:36)
[2021-05-02] MEDS ORDERED: Ondansetron 4 MG/2 ML VIAL IVP ONE (09:36)
[2021-05-02] MEDS ORDERED: *HR* FentaNYL (PF) 100 MCG/2 ML VIAL IVP ONE (09:51)
[2021-05-02 10:11] LABS: Basophils # 0.1 K/mcL (0.0-0.2); Basophils % 0.6 %; Eosinophils # 0.1 K/mcL (0.0-0.6); Eosinophils % 0.8 %; Hemoglobin 11.9 g/dL (12.9-16.9); Immature Granulocytes % 0.4 % (0-4); Lymphocytes % 9.7 %; Mean Corpuscular HGB Conc 32.2 g/dL (31.6-35.5); Mean Corpuscular Hemoglobin 29.7 pg (28.0-33.3); Mean Corpuscular Volume 92.3 fL (83.0-100.0); Mean Platelet Volume 8.9 fL (9.4-12.4); Monocytes # 0.9 K/mcL (0.0-1.3); Monocytes % 8.5 %; Neutrophils # 8.5 K/mcL (1.6-8.9); Platelet Count 216 K/mcL (140-400); Red Blood Count 4.01 M/mcL (4.19-5.50); Red Cell Distribution Width 12.9 % (11.5-14.5); White Blood Count 10.7 K/mcL (4.3-11.1)
[2021-05-02 10:19] LABS: INR 1.7
[2021-05-02 10:22] LABS: Activated Partial Thrombo Time 32.4 Seconds (26.0-36.0)
[2021-05-02 10:32] LABS: BUN/Creatinine Ratio 11 (6-26); Blood Urea Nitrogen 16 mg/dL (8-23); Calcium 9.2 mg/dL (8.6-10.3); Carbon Dioxide 27 mEq/L (23-29); Chloride 100 mEq/L (98-107); Glucose 134 mg/dL (70-105); Osmolality,Calculated 289 (280-300); Sodium 138 mEq/L (136-145); eGFR For African Americans 59 (> 60); eGFR For Non-African Americans 49 (> 60)
[2021-05-02 10:34] LABS: Troponin I < 0.03 ng/mL (< 0.04)
[2021-05-02] MEDS ORDERED: Ondansetron ODT 4 MG TAB.RAPDIS SL PRN (11:33)
[2021-05-02] MEDS ORDERED: *HR* OxyCODONE Immed Rel 5 MG TABLET PO PRN ×4 (11:39→14:46)
[2021-05-02] MEDS: NIFEdipine XL (24 HR) 30 MG TAB.ER.24 PO SCH (13:21)
[2021-05-02] MEDS ORDERED: *HR* Heparin 5,000 UNIT/ML VIAL SQ SCH (14:00)
[2021-05-02] MEDS: Acetaminophen 325 MG TABLET PO PRN ×2 (14:16→21:33)
[2021-05-02] MEDS ORDERED: Isovue-370 500 ML BOTTLE IVP ONE (14:20)
[2021-05-02] MEDS ORDERED: *HR* LORazepam 0.5 MG TABLET PO ONE (14:44)
[2021-05-02] MEDS ORDERED: Perflutren Lipid Microsphere 1.3 ML in 0.9 % Sodium Chloride 8.7 ML IVP PRN (17:18)
[2021-05-02] MEDS: Sucralfate 1 GM TABLET PO SCH ×2 (18:35→22:51)
[2021-05-02] MEDS: Apixaban 5 MG TABLET PO SCH (19:48)
[2021-05-02] MEDS: *HR* OxyCODONE Immed Rel 5 MG TABLET PO PRN (19:48)
[2021-05-02] MEDS ORDERED: traZODone 50 MG TABLET PO SCH (21:00)
[2021-05-03] MEDS: *HR* OxyCODONE Immed Rel 5 MG TABLET PO PRN ×4 (01:05→15:28)
[2021-05-03] MEDS ORDERED: Regadenoson 0.4 MG/5 ML SYRINGE IVP ONE (06:11)
[2021-05-03 06:17] LABS: Hematocrit 38.2 % (37.5-50.1); Hemoglobin 12.2 g/dL (12.9-16.9); Mean Corpuscular HGB Conc 31.9 g/dL (31.6-35.5); Mean Corpuscular Hemoglobin 29.4 pg (28.0-33.3); Mean Platelet Volume 9.1 fL (9.4-12.4); Platelet Count 263 K/mcL (140-400); Red Blood Count 4.15 M/mcL (4.19-5.50); Red Cell Distribution Width 12.9 % (11.5-14.5); White Blood Count 14.7 K/mcL (4.3-11.1)
[2021-05-03 06:37] LABS: BUN/Creatinine Ratio 13 (6-26); Blood Urea Nitrogen 17 mg/dL (8-23); Calcium 9.5 mg/dL (8.6-10.3); Carbon Dioxide 25 mEq/L (23-29); Chloride 98 mEq/L (98-107); Glucose 111 mg/dL (70-105); Osmolality,Calculated 280 (280-300); Potassium 3.9 mEq/L (3.5-5.1); Sodium 134 mEq/L (136-145); eGFR For African Americans > 60 (> 60); eGFR For Non-African Americans 52 (> 60)
[2021-05-03] MEDS: Acetaminophen 325 MG TABLET PO PRN ×2 (07:34→13:16)
[2021-05-03] MEDS ORDERED: Aspirin 81 MG TAB.CHEW PO SCH (09:00)
[2021-05-03] MEDS: Apixaban 5 MG TABLET PO SCH (09:56)
[2021-05-03] MEDS: NIFEdipine XL (24 HR) 30 MG TAB.ER.24 PO SCH (09:56)
[2021-05-03] MEDS: Sucralfate 1 GM TABLET PO SCH ×3 (09:56→15:28)
[2021-05-03 11:50] VITALS: BP 122/80
[2021-05-03 16:00] LABS: Bilirubin,Urine Negative (Negative); Blood,Urine Trace (Negative); Clarity,Urine Clear (Clear); Color,Urine Light-Yellow (Yellow); Glucose,Urine (UA) Normal (Normal); Ketones,Urine Negative (Negative); Leukocyte Esterase,Urine Negative (Negative); Nitrite,Urine Negative (Negative); Protein,Urine Trace mg/dL (Neg-Trace); RBC,Urine 0-3 per hpf (0-3); Specific Gravity,Urine 1.016 (1.010-1.025); Urobilinogen,Urine Normal (Normal); WBC,Urine 0-3 per hpf (0-3)
== END 2021-05-03 17:01 | disposition home or self-care (01) ==
LOC: CDU 09:22 → EMEROOARM 09:22 → SUATTDRO 11:50 → CDU 13:47
PROVIDERS: ADMIT Internal Medicine; ATTEND Internal Medicine

== ENCOUNTER 2022-01-16 15:54 | Inpatient (IN) ==
[2022-01-16] MEDS ORDERED: 0.9 % Sodium Chloride 1,000 ML IVC ONE (18:44)
[2022-01-16] MEDS ORDERED: Morphine Sulfate 2 MG/ML SYRINGE IVP ONE (18:44)
[2022-01-16] MEDS ORDERED: Naloxone 0.4 MG/ML INJ IVP PRN (19:50)
[2022-01-16] MEDS ORDERED: Melatonin 3 MG TABLET PO PRN (19:50)
[2022-01-16] MEDS ORDERED: D5% in Water 1,000 ML IVC PRN (19:51)
[2022-01-16] MEDS ORDERED: *HR* Dextrose 50 % in Water (Syg) 50 ML SYRINGE IVP PRN (19:51)
[2022-01-16] MEDS ORDERED: Dextrose 4 GM Chewable Tablets PO PRN ×2 (19:51)
[2022-01-16] MEDS ORDERED: Saliva Stimulant 44.3ml BOTTLE PO PRN (19:52)
[2022-01-16] MEDS ORDERED: Acetaminophen IV 1,000 MG/100 ML BAG IVPB SCH (22:00)
[2022-01-16] MEDS: 0.9 % Sodium Chloride 1,000 ML IVC SCH (22:30)
[2022-01-16] MEDS ORDERED: Methylnaltrexone 12 MG/0.6 ML SYRINGE SQ ONE (22:32)
[2022-01-17] MEDS ORDERED: Methyl Salicylate/Menthol 85 APPL/85 GM TUBE TP PRN (01:29)
[2022-01-17] MEDS: 0.9 % Sodium Chloride 1,000 ML IVC SCH (05:03)
[2022-01-17] MEDS ORDERED: *HR* LORazepam 2 MG/ML VIAL IVP ONE (05:40)
[2022-01-17 06:00] LABS: Hematocrit 34.3 % (37.5-50.1); Mean Corpuscular HGB Conc 32.7 g/dL (31.6-35.5); Mean Corpuscular Hemoglobin 29.3 pg (28.0-33.3); Mean Corpuscular Volume 89.8 fL (83.0-100.0); Mean Platelet Volume 8.9 fL (9.4-12.4); Platelet Count 198 K/mcL (140-400); Red Blood Count 3.82 M/mcL (4.19-5.50); Red Cell Distribution Width 13.5 % (11.5-14.5); White Blood Count 13.4 K/mcL (4.3-11.1)
[2022-01-17 06:01] LABS: Hemoglobin 11.2 g/dL (12.9-16.9)
[2022-01-17 06:04] LABS: INR 1.3; Prothrombin Time 14.9 Seconds (9.4-12.1)
[2022-01-17] MEDS: Pantoprazole 40 MG VIAL IVP SCH (08:08)
[2022-01-17] MEDS: Apixaban 5 MG TABLET GTUBE SCH ×2 (08:08→20:30)
[2022-01-17] MEDS: Aspirin 81 MG TAB.CHEW GTUBE SCH (08:09)
[2022-01-17 08:39] LABS: Alanine Aminotransferase 12 Units/L (7-52); Albumin 3.8 g/dL (3.5-5.7); Albumin/Globulin Ratio 1.9 (1.1-2.2); Alkaline Phosphatase 55 Units/L (34-104); Aspartate Amino Transferase 23 Units/L (13-39); BUN/Creatinine Ratio 17 (6-26); Bilirubin,Total 0.8 mg/dL (0.3-1.0); Blood Urea Nitrogen 23 mg/dL (8-23); Calcium 8.3 mg/dL (8.6-10.3); Carbon Dioxide 23 mEq/L (23-29); Chloride 104 mEq/L (98-107); Glucose 111 mg/dL (70-105); Magnesium 1.9 mg/dL (1.6-2.6); Osmolality,Calculated 282 (280-300); Phosphorous 2.7 mg/dL (2.7-4.5); Sodium 134 mEq/L (136-145); Total Protein 5.8 g/dL (6.4-8.9); eGFR For African Americans > 60 (> 60); eGFR For Non-African Americans 51 (> 60)
[2022-01-17] MEDS ORDERED: Cyanocobalamin (B-12) 1,000 MCG TABLET GTUBE SCH (09:00)
[2022-01-17] MEDS ORDERED: Finasteride 5 MG TABLET PO SCH (09:00)
[2022-01-17] MEDS: MetroNIDAZOLE 500 MG/100 ML 500 MG/100 ML BAG IVPB SCH ×2 (10:54→16:46)
[2022-01-17 17:05] LABS: Hematocrit 35.8 % (37.5-50.1); Hemoglobin 11.8 g/dL (12.9-16.9)
[2022-01-18] MEDS: MetroNIDAZOLE 500 MG/100 ML 500 MG/100 ML BAG IVPB SCH ×3 (00:05→17:56)
[2022-01-18 08:08] VITALS: PULSE 68; O2SAT 97
[2022-01-18 09:25] LABS: Basophils # 0.1 K/mcL (0.0-0.2); Basophils % 0.5 %; Eosinophils # 0.1 K/mcL (0.0-0.6); Eosinophils % 1.2 %; Hematocrit 34.9 % (37.5-50.1); Hemoglobin 11.6 g/dL (12.9-16.9); Immature Granulocytes % 0.4 % (0-4); Lymphocytes # 1.2 K/mcL (0.6-4.6); Lymphocytes % 10.3 %; Mean Corpuscular HGB Conc 33.2 g/dL (31.6-35.5); Mean Corpuscular Hemoglobin 29.7 pg (28.0-33.3); Mean Corpuscular Volume 89.3 fL (83.0-100.0); Mean Platelet Volume 8.8 fL (9.4-12.4); Monocytes # 1.2 K/mcL (0.0-1.3); Monocytes % 9.6 %; Neutrophils # 9.3 K/mcL (1.6-8.9); Platelet Count 190 K/mcL (140-400); Red Blood Count 3.91 M/mcL (4.19-5.50); Red Cell Distribution Width 13.4 % (11.5-14.5)
[2022-01-18 09:32] LABS: BUN/Creatinine Ratio 16 (6-26); Blood Urea Nitrogen 19 mg/dL (8-23); Calcium 8.7 mg/dL (8.6-10.3); Carbon Dioxide 23 mEq/L (23-29); Chloride 104 mEq/L (98-107); Glucose 86 mg/dL (70-105); Osmolality,Calculated 282 (280-300); Potassium 3.9 mEq/L (3.5-5.1); Sodium 135 mEq/L (136-145); eGFR For African Americans > 60 (> 60); eGFR For Non-African Americans > 60 (> 60)
[2022-01-18 09:42] VITALS: BP 149/87; TEMP 98
[2022-01-18] MEDS: Aspirin 81 MG TAB.CHEW GTUBE SCH (10:58)
[2022-01-18] MEDS: Apixaban 5 MG TABLET GTUBE SCH (10:58)
[2022-01-18] MEDS: Pantoprazole 40 MG VIAL IVP SCH (10:59)
[2022-01-18] MEDS ORDERED: Apixaban 5 MG TABLET PO SCH (21:00)
[2022-01-19] MEDS ORDERED: Aspirin 81 MG TAB.CHEW PO SCH (09:00)
== END 2022-01-18 18:03 | disposition home or self-care (01) | DRG 389 ==
LOC: SUATTDRO → 3ANU 15:54 → EMEROOARM 15:54 → 3ANU 19:45
PROVIDERS: ADMIT Internal Medicine; ATTEND Internal Medicine